=== PATIENT | male | born 1950 | race Caucasian/White ===

== ENCOUNTER 2024-05-28 09:33 | Observation (INO) ==
[2024-05-28 09:46] VITALS: BMI 26.4
--- NOTE | 2024-05-28 09:58 | DR.DIZZY ---
HPI Time seen Time Seen by Provider: 05/28/24 09:43 PCP Primary Care Physician: Isauro Rhodes Chief Complaint Doctor Comments: 73-year-old male brought in for evaluation. Patient was scheduled for a cardiac tilt test, blood pressure was found to be low on arrival there. Patient sent over to the ER for further evaluation. Patient has fallen twice since yesterday. Hurt R great toe. Denies headache, neck pain, fever, chills, URI symptoms, bowel or bladder issues. Denies any significant pain. Blood pressure better while patient laying on the stretcher. Chief Complaint:: Pt was at this facility for a tilt test and upon arrival while sitting pts bp was in the 90's systolic and when pt stood up his systolic bp dropped to the 70's systolic. Upon arrival to the ER, pt placed on athletic monitor and bp monitor and o2 sensor. Pt denies any pain at this time. COVID-19 Coronavirus risk:travel/contact w/high risk person: No Has patient experienced Coronavirus symptoms: No Nurses Notes Reviewed Nurses Notes Review: Yes Source History Provided: Patient and Family Member Mode of Arrival Mode of Arrival: Wheelchair Timing Onset of Chief Complaint: 05/28/24 Context Stroke Symptoms: None PMH PMH Past Medical History: Yes Past Medical History: Coronary Artery Disease, Diabetes, Dyslipidemia and Hypertension Past Medical History Comment: AFIB Past Surgical History: Yes Surgical History: Appendectomy, Cholecystectomy and Other Past Surgical History Comment: bilateral cataracts with removal Family History History of Family Medical Conditions: Yes Family Medical History: Hypertension Social History Does patient currently use any type of tobacco product: No Alcohol Use: None Do you use any recreational Drugs:: No Lives With: Alone Lives Where: Home Travel Risk Coronavirus risk:travel/contact w/high risk person: No Has patient experienced Coronavirus symptoms: No Infectious screening Have you traveled outside the country in the last 6 months?: No Isolation: Standard ROS Review of Systems Constitutional: No Symptoms Reported Eyes: No Symptoms Reported ENTM: No Symptoms Reported Respiratoy: No Symptoms Reported Cardiovascular: No Symptoms Reported Gastrointestinal/Abdominal: No Symptoms Reported Genitourinary: No Symptoms Reported Neurological: No Symptoms Reported Musculoskeletal: See HPI Integumentary: No Symptoms Reported Hematologic/Lymphatic: No Symptoms Reported All Other Systems: Reviewed and Negative PE Vital Signs Vitals: Vital Signs Temperature 98.5 F Pulse Rate 61 Pulse Rate 66 Pulse Rate 72 Pulse Rate 73 Pulse Rate 68 Pulse Rate 62 Pulse Rate 62 Pulse Rate 63 Pulse Rate 63 Pulse Rate 61 Pulse Rate 57 Pulse Rate 63 Pulse Rate 54 Pulse Rate 58 Pulse Rate 121 Pulse Rate 54 Pulse Rate 55 Pulse Rate 87 Pulse Rate 54 Pulse Rate 54 Pulse Rate 58 Pulse Rate 52 Pulse Rate 53 Pulse Rate 54 Respiratory Rate 14 Respiratory Rate 16 Respiratory Rate 12 Respiratory Rate 15 Respiratory Rate 20 Respiratory Rate 17 Respiratory Rate 14 Respiratory Rate 18 Respiratory Rate 18 Respiratory Rate 17 Respiratory Rate 14 Respiratory Rate 14 Respiratory Rate 15 Respiratory Rate 41 Respiratory Rate 17 Respiratory Rate 30 Respiratory Rate 16 Respiratory Rate 12 Respiratory Rate 19 Respiratory Rate 18 Respiratory Rate 16 Respiratory Rate 16 Respiratory Rate 17 Blood Pressure 154/72 Blood Pressure 102/57 Blood Pressure 73/45 Blood Pressure 93/53 Blood Pressure 140/71 Blood Pressure 126/64 Blood Pressure 132/65 O2 Sat by Pulse Oximetry 100 O2 Sat by Pulse Oximetry 100 O2 Sat by Pulse Oximetry 99 O2 Sat by Pulse Oximetry 100 O2 Sat by Pulse Oximetry 100 O2 Sat by Pulse Oximetry 90 O2 Sat by Pulse Oximetry 97 O2 Sat by Pulse Oximetry 87 O2 Sat by Pulse Oximetry 100 O2 Sat by Pulse Oximetry 100 O2 Sat by Pulse Oximetry 100 O2 Sat by Pulse Oximetry 91 O2 Sat by Pulse Oximetry 100 O2 Sat by Pulse Oximetry 100 O2 Sat by Pulse Oximetry 100 O2 Sat by Pulse Oximetry 100 O2 Sat by Pulse Oximetry 100 O2 Sat by Pulse Oximetry 100 O2 Sat by Pulse Oximetry 100 O2 Sat by Pulse Oximetry 100 O2 Sat by Pulse Oximetry 100 General General Appearance: Alert and In No Apparent Distress Head Head Exam: Normal Inspection, Atraumatic and Normocephalic Eyes Eye exam: PERRL and EOMI ENT ENT Exam: Normal Oropharynx and Mucous Membranes Moist Neck Neck Exam: Normal Inspection and Full ROM; negative Tenderness Respiratory Respiratory Exam: Normal Lung Sounds Bilat; negative Accessory Muscle Use or Respiratory Distress Cardiovascular Cardiovascular Exam: Regular Rate, Normal Rhythm and Normal Heart Sounds Abdominal Exam Abdominal Exam: Normal Bowel Sounds and Soft; negative Tenderness Extremeties Extremities Exam: Full ROM; negative Edema Neurologic Neurological Exam: Alert, Oriented X3 and CN II-XII Intact; negative Motor Sensory Deficit Skin Skin Exam: Warm and Dry Other Exam Other Exam: R 1st toe - + abrasion dorsal aspect, dried blood, partial subungal hematoma. COURSE Treatment Treatment: 73-year-old male sent over with low blood pressure, after presenting for tilt test.. BP better with laying down. Patient has fallen twice in the past 24 hours. Workup initiated. Patient given IV fluids..1027 - + small dorsal chip fracture of dorsal distal phalanx. 1324 -labs overall acceptable has a slight elevation of lactic acid, 2.4. Patient with no clinical evidence for sepsis or acute infection. CT abdomen pelvis without acute abnormalities, shows improvement of the previous adjacent liver abscess, improved over last study of March.. Pt stable here. Will d/c to home. Will brianna tape great toe. Recommend holding his lisinopril x 2 days, then restart at lower dose, 5 mg qday. 1353 - change of plans. Check patient's blood pressure with sitting and standing. Drops dramatically with symptoms of lightheaded dizziness. Feels better, looks great while supine. Recommend admission for orthostatic hypotension. Will d ecrease his blood pressure medicines and observe his response. Patient presented to the on-call physician, Dr. Frausto, accepts the admission. ROR Labs Reviewed Laboratory Results Reviewed?: Yes 05/28/24 09:48 05/28/24 09:55 Laboratory: WBC 14.4 X10^3/uL (3.6-10.0) H 05/28/24 09:48 RBC 5.03 X10^6/uL (4.7-6.0) 05/28/24 09:48 Hgb 13.9 g/dL (13.5-18.0) 05/28/24 09:48 Hct 42.2 % (42.0-54.0) 05/28/24 09:48 MCV 84.0 fL (80.0-100.0) 05/28/24 09:48 MCH 27.6 pg (27.0-34.0) 05/28/24 09:48 MCHC 32.9 g/dL (33.0-35.0) L 05/28/24 09:48 RDW 18.0 % (11.6-16.5) H 05/28/24 09:48 Plt Count 217 X10^3/uL (150.0-450.0) 05/28/24 09:48 MPV 8.2 fL (7.4-11.0) 05/28/24 09:48 Neut % (Auto) 78.9 % (42.0-75.0) H 05/28/24 09:48 Lymph % (Auto) 12.3 % (21.0-51.0) L 05/28/24 09:48 [place] % (Auto) 7.9 % (0.0-13.0) 05/28/24 09:48 Eos % (Auto) 0.4 % (0.9-2.9) L 05/28/24 09:48 Baso % (Auto) 0.5 % (0.2-1.0) 05/28/24 09:48 Neut # (Auto) 11.4 x10^3/uL (2.2-4.8) H 05/28/24 09:48 Lymph # (Auto) 1.8 X10^3/uL (1.3-2.9) 05/28/24 09:48 [place] # (Auto) 1.1 x10^3/uL (0.3-0.8) H 05/28/24 09:48 Eos # (Auto) 0.1 x10^3/uL (0.0-0.2) 05/28/24 09:48 Baso # (Auto) 0.1 X10^3/uL (0.0-0.1) 05/28/24 09:48 Absolute Nucleated RBC 0.1 /100WBC 05/28/24 09:48 Sodium 135 mmol/L (136-145) L 05/28/24 09:55 Corrected Sodium 136 mmol/L (136-145) 05/28/24 09:55 Potassium 3.7 mmol/L (3.5-5.1) 05/28/24 09:55 Chloride 98 mmol/L (98-107) 05/28/24 09:55 Carbon Dioxide 27.1 mmol/L (21-32) 05/28/24 09:55 BUN 14 mg/dL (7-18) 05/28/24 09:55 Creatinine 1.29 mg/dL (0.70-1.30) 05/28/24 09:55 Est GFR (MDRD) Af Amer > 60 (>60) 05/28/24 09:55 Est GFR (MDRD) Non-Af 58 (>60) L 05/28/24 09:55 Glucose 162 mg/dL (65-99) H 05/28/24 09:55 Lactic Acid 2.4 mmol/L (0.4-2.0) H 05/28/24 09:55 Calcium 9.2 mg/dL (8.5-10.1) 05/28/24 09:55 Corrected Calcium TNP 05/28/24 09:55 Total Bilirubin 0.90 mg/dL (0.2-1.0) 05/28/24 09:55 AST 19 Units/L (15-37) 05/28/24 09:55 ALT 22 Units/L (12-78) 05/28/24 09:55 Alkaline Phosphatase 70 Units/L (46-116) 05/28/24 09:55 Troponin I High Sens 8.6 ng/L (4.0-60.0) 05/28/24 09:55 Total Protein 7.2 g/dL (6.4-8.2) 05/28/24 09:55 Albumin 3.5 g/dL (3.4-5.0) 05/28/24 09:55 Globulin 3.7 g/dL (2.5-4.5) 05/28/24 09:55 Albumin/Globulin Ratio 0.9 Ratio (1.1-2.1) L 05/28/24 09:55 Lipase 25 Units/L (16-77) 05/28/24 09:55 XRAY XRAY Interpreted by: Radiologist X-ray Results: EXAM: CT abdomen pelvis with contrast HISTORY: Hypotension, passing out, history of liver abscess TECHNIQUE: Axial postcontrast images with coronal and sagittal reformats. Dose reduction procedures were used with mA/kv adjusted for body size. COMPARISON: CTA abdomen pelvis 04/21/2024 FINDINGS: Lung bases are clear. Abundant coronary artery calcifications are identified. The liver is normal in size and configuration without focal space-occupying disease. However, adjacent to the posteroinferior margin of the inferior aspect of the right lobe of the liver there is a 2.3 by 2 cm fluid collection with some surrounding thickening of the tissue planes. This is slightly smaller than that noted on the prior examination 04/21/2024 and may represent residual of the patient's prior known abscess. This is best visualized on axial series 3, image 35 and coronal series 5, image 44 spleen, adrenal glands, and pancreas are within normal limits. Patient appears to be status post cholecystectomy. Kidneys are unobstructed and without stones or masses. Bilateral multiple renal cysts are present. No ureteral calculi are identified. Patient appears to be status post appendectomy. Calcific atherosclerotic changes present in the nondi lated abdominal aorta. 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 No intraperitoneal or retroperitoneal lymphadenopathy of significance is identified. There are no findings suggestive of enteritis, colitis, or diverticulitis. No pelvic masses, pelvic fluid, or pelvic lymphadenopathy is identified. No bladder abnormality is identified. Prostate gland is enlarged. There is marked symmetrical lobular enlargement of the seminal vesicles slightly more prominent than on the prior examination. There is no surrounding inflammatory change however seminal vesiculitis is not entirely excluded. Urological consultation may be indicated. No lytic or blastic skeletal lesions of significance identified. IMPRESSION: 2.3 x 2 cm fluid collection adjacent to the lateral margin of the tip of the right lobe of the liver possibly residual abscess from the patient's known prior perihepatic abscess. It has decreased in size since the prior examination 04/21/2024 Marked calcific atherosclerotic change in the proximal right superior mesenteric artery with an approximate 50% stenosis near the origin Enlarged prostate gland Enlarged lobular seminal vesicles bilaterally increasing in size when compared with the prior examination. No surrounding inflammatory changes identified however bilateral seminal vesiculitis is still possible. Urologic evaluation may be indicated. THIS IS AN ELECTRONICALLY VERIFIED FINAL REPORT 05/28/2024 1:09 PM - Electronically signed by Randy Spangler MD EKG Rate: 54 [place]: Normal Rhythm: SB Block: 1 ST: Nonsp Opioid Opioid Risk Tool Age (Geoff box if 16-45): No Total: 0 Total Score Risk Category: Low Risk Copyright: Satya BUCK predicting aberrant behaviors Discharge Plan Diagnosis Discharge Problem: Orthostatic hypotension, Fracture of toe of right foot Discharge Plan Patient Disposition: ADMITTED INPATIENT Condition: Stable Prescriptions: New lisinopril 5 mg tablet 5 mg PO QDAY 20 Days Qty: 20 0RF No Action citalopram 40 mg tablet 40 mg PO QDAY amiodarone 200 mg tablet 100 mg PO QDAY midodrine 5 mg tablet 5 mg PO BID chlorthalidone 25 mg tablet 12.5 mg PO QAM glimepiride 2 mg tablet 2 mg PO QDAY potassium chloride 20 mEq tablet,ER particles/crystals 20 meq PO BID simvastatin 20 mg tablet 20 mg PO QPM lisinopril 10 mg Tablet 10 mg PO DAILY cholestyramine-aspartame [Cholestyramine Light] 4 gram powder in packet 1 ea PO TID Eliquis 5 mg tablet 5 mg PO BID Health Concerns: Post Hospitalization: new medications and changes needed to prevent readmission or further decline. Pt educated and given instructions on all concerns. Orders to Discharge Patient Discharge Orders: Transfer (Routine); Ordered 05/28/24 Ordered By: Aguilar Britton Follow ups/Referrals Follow ups/Referrals: [facility],None [Primary Care Provider] - 3 days Instructions Instructions: Toe Fracture, [id number], Orthostatic Hypotension
[2024-05-28] MEDS: NS 500 ML IV 500 ML IV ONE (10:10)
--- NOTE | 2024-05-28 10:12 | EKG ---
Test Reason : low BP Blood Pressure : */* mmHG Vent. Rate : 54 BPM Atrial Rate : * BPM P-R Int : * ms QRS Dur : 94 ms QT Int : 488 ms P-R-T Axes : * 50 62 degrees QTc Int : 462 ms Poor data quality, interpretation may be adversely affected Sinus bradycardia ,first degree AV block Septal infarct , age undetermined Abnormal ECG No previous ECGs available Confirmed by Zeeshan Abreu MD ([id number]) on 05/29/2024 7:35:10 AM Referred By: Confirmed By: Zeeshan Abreu MD
[2024-05-28 10:20] LABS: BASOPHILS # (AUTO) 0.1 X10^3/uL (0.0-0.1); BASOPHILS % (AUTO) 0.5 % (0.2-1.0); EOSINOPHILS # (AUTO) 0.1 x10^3/uL (0.0-0.2); EOSINOPHILS % (AUTO) 0.4 % (0.9-2.9); HEMATOCRIT 42.2 % (42.0-54.0); HEMOGLOBIN 13.9 g/dL (13.5-18.0); LYMPHOCYTES # (AUTO) 1.8 X10^3/uL (1.3-2.9); LYMPHOCYTES % (AUTO) 12.3 % (21.0-51.0); MEAN CORPUSCULAR HEMOGLOBIN 27.6 pg (27.0-34.0); MEAN CORPUSCULAR HGB CONC 32.9 g/dL (33.0-35.0); MEAN PLATELET VOLUME 8.2 fL (7.4-11.0); MONOCYTES # (AUTO) 1.1 x10^3/uL (0.3-0.8); MONOCYTES % (AUTO) 7.9 % (0.0-13.0); NEUTROPHILS # (AUTO) 11.4 x10^3/uL (2.2-4.8); NEUTROPHILS % (AUTO) 78.9 % (42.0-75.0); PLATELET COUNT 217 X10^3/uL (150.0-450.0); RED BLOOD COUNT 5.03 X10^6/uL (4.7-6.0); WHITE BLOOD COUNT 14.4 X10^3/uL (3.6-10.0)
[2024-05-28 10:33] LABS: ALANINE AMINOTRANSFERASE 22 Units/L (12-78); ALBUMIN 3.5 g/dL (3.4-5.0); ALKALINE PHOSPHATASE 70 Units/L (46-116); ASPARTATE AMINO TRANSFERASE 19 Units/L (15-37); BLOOD UREA NITROGEN 14 mg/dL (7-18); CALCIUM 9.2 mg/dL (8.5-10.1); CARBON DIOXIDE 27.1 mmol/L (21-32); CHLORIDE 98 mmol/L (98-107); COR NA(FOR HYPERGLY) 136 mmol/L (136-145); CREATININE 1.29 mg/dL (0.70-1.30); GLUCOSE 162 mg/dL (65-99); LIPASE 25 Units/L (16-77); POTASSIUM 3.7 mmol/L (3.5-5.1); SODIUM 135 mmol/L (136-145); TOTAL PROTEIN 7.2 g/dL (6.4-8.2); eGFR NON BLACK RACES 58 (>60)
[2024-05-28] MEDS ORDERED: OMNIPAQUE 350 mg/mL 100 mL BTL 100 ML ONE (12:01)
--- NOTE | 2024-05-28 13:12 | CT ---
EXAM:CT abdomen pelvis with contrastHISTORY:Hypotension, passing out, history of liver abscessTECHNIQUE:Axial postcontrast images with coronal and sagittal reformats. Dose reduction procedures were used with mA/kv adjusted for body size.COMPARISON:CTA abdomen pelvis 04/21/2024FINDINGS:Lung bases are clear. Abundant coronary artery calcifications are identified. The liver is normal in size and configuration without focal space-occupying disease. However, adjacent to the posteroinferior margin of the inferior aspect of the right lobe of the liver there is a 2.3 by 2 cm fluid collection with some surrounding thickening of the tissue planes. This is slightly smaller than that noted on the prior examination 04/21/2024 and may represent residual of the patient's prior known abscess. This is best visualized on axial series 3, image 35 and coronal series 5, image 44 spleen, adrenal glands, and pancreas are within normal limits. Patient appears to be status post cholecystectomy. Kidneys are unobstructed and without stones or masses. Bilateral multiple renal cysts are present. No ureteral calculi are identified. Patient appears to be status post appendectomy. Calcific atherosclerotic changes present in the nondilated abdominal aorta. 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 No intraperitoneal or retroperitoneal lymphadenopathy of significance is identified. There are no findings suggestive of enteritis, colitis, or diverticulitis. No pelvic masses, pelvic fluid, or pelvic lymphadenopathy is identified. No bladder abnormality is identified. Prostate gland is enlarged. There is marked symmetrical lobular enlargement of the seminal vesicles slightly more prominent than on the prior examination. There is no surrounding inflammatory change however seminal vesiculitis is not entirely excluded. Urological consultation may be indicated. No lytic or blastic skeletal lesions of significance identified.IMPRESSION:2.3 x 2 cm fluid collection adjacent to the lateral margin of the tip of the right lobe of the liver possibly residual abscess from the patient's known prior perihepatic abscess. It has decreased in size since the prior examination 04/21/2024Marked calcific atherosclerotic change in the proximal right superior mesenteric artery with an approximate 50% stenosis near the originEnlarged prostate glandEnlarged lobular seminal vesicles bilaterally increasing in size when compared with the prior examination. No surrounding inflammatory changes identified however bilateral seminal vesiculitis is still possible. Urologic evaluation may be indicated.THIS IS AN ELECTRONICALLY VERIFIED FINAL REPORT05/28/2024 1:09 PM - Electronically signed by Randy Spangler MD
[2024-05-28] MEDS ORDERED: CONSULT PHARMACY - POTASSIUM & MAGNESIUM XX SCH (15:00)
--- NOTE | 2024-05-28 16:54 | RAD ---
EXAM:CHEST, 1 VIEWHISTORY:low BP; hx- CAD, DIABETIES, HTN, A-FIB SX- APPENDECTOMY, CHOLECYSTECTOMYCOMPARISON:None.TECHNIQUE: .br.br.br.br mediastinal contours are normal. Lungs are clear as are the pleural spaces. No free air or pneumothorax. No acute bony abnormality. There is locally advanced glenohumeral osteoarthrosis of the right shoulder with multiple calcified loose bodies in the inferior joint recess.Please note that the left costophrenic sulcus is excluded from the field of view.IMPRESSION:No acute radiographic abnormalities of the chest.THIS IS AN ELECTRONICALLY VERIFIED FINAL REPORT05/28/2024 4:51 PM - Electronically signed by Guillermo Friend MD
[2024-05-28] MEDS: D5 NS 1,000 ML IV 1,000 ML IV SCH (18:27)
[2024-05-28 20:11] LABS: BILIRUBIN,URINE NEGATIVE (NEGATIVE); BLOOD/HEMOGLOBIN,URINE 1+ (NEGATIVE); GLUCOSE, URINE 3+ (NEGATIVE); KETONES,URINE NEGATIVE (NEGATIVE); LEUKOCYTE ESTERASE ,URINE NEGATIVE (NEGATIVE); NITRITES,URINE NEGATIVE (NEGATIVE); PROTEIN,URINE 2+ (NEGATIVE); UROBILINOGEN,URINE NORMAL (NORMAL)
[2024-05-28 20:20] LABS: APPEARANCE,URINE CLEAR (CLEAR); BACTERIA,URINE TRACE /HPF (NEGATIVE); COLOR,URINE YELLOW (YELLOW); RBC,URINE 0-2 /HPF (0-3); SQUAMOUS EPITHELIAL CELL,UR RARE /HPF (NEGATIVE)
[2024-05-28] MEDS: QUESTRAN POWDER FOR ORAL SUSP PO SCH (22:15)
[2024-05-28] MEDS: PROAMATINE PO SCH (22:16)
[2024-05-28] MEDS: ZOCOR TAB 20 MG PO SCH (22:16)
[2024-05-28] MEDS: K-DUR TAB 20 MEQ PO SCH (22:16)
[2024-05-28] MEDS: ELIQUIS PO SCH (22:16)
[2024-05-29 06:01] LABS: BASOPHILS # (AUTO) 0.1 X10^3/uL (0.0-0.1); BASOPHILS % (AUTO) 0.8 % (0.2-1.0); EOSINOPHILS # (AUTO) 0.1 x10^3/uL (0.0-0.2); EOSINOPHILS % (AUTO) 1.7 % (0.9-2.9); HEMATOCRIT 37.9 % (42.0-54.0); HEMOGLOBIN 12.8 g/dL (13.5-18.0); LYMPHOCYTES # (AUTO) 1.9 X10^3/uL (1.3-2.9); LYMPHOCYTES % (AUTO) 21.8 % (21.0-51.0); MEAN CORPUSCULAR HEMOGLOBIN 28.2 pg (27.0-34.0); MEAN CORPUSCULAR HGB CONC 33.7 g/dL (33.0-35.0); MEAN CORPUSCULAR VOLUME 83.8 fL (80.0-100.0); MEAN PLATELET VOLUME 7.9 fL (7.4-11.0); MONOCYTES # (AUTO) 0.8 x10^3/uL (0.3-0.8); MONOCYTES % (AUTO) 9.5 % (0.0-13.0); NEUTROPHILS # (AUTO) 5.8 x10^3/uL (2.2-4.8); NEUTROPHILS % (AUTO) 66.2 % (42.0-75.0); PLATELET COUNT 196 X10^3/uL (150.0-450.0); RED BLOOD COUNT 4.52 X10^6/uL (4.7-6.0); RED CELL DISTRIBUTION WIDTH 18.3 % (11.6-16.5); WHITE BLOOD COUNT 8.7 X10^3/uL (3.6-10.0)
[2024-05-29 06:10] LABS: ALANINE AMINOTRANSFERASE 17 Units/L (12-78); ALBUMIN 2.9 g/dL (3.4-5.0); ALKALINE PHOSPHATASE 63 Units/L (46-116); ASPARTATE AMINO TRANSFERASE 12 Units/L (15-37); BLOOD UREA NITROGEN 12 mg/dL (7-18); CALCIUM 8.2 mg/dL (8.5-10.1); CARBON DIOXIDE 30.3 mmol/L (21-32); CHLORIDE 98 mmol/L (98-107); COR CA(FOR HYPOALB) 9.1 mg/dL (8.5-10.1); COR NA(FOR HYPERGLY) 138 mmol/L (136-145); CREATININE 1.01 mg/dL (0.70-1.30); GLUCOSE 193 mg/dL (65-99); MAGNESIUM 1.5 mg/dL (2.0-2.9); POTASSIUM 3.3 mmol/L (3.5-5.1); SODIUM 136 mmol/L (136-145); TOTAL PROTEIN 6.4 g/dL (6.4-8.2); eGFR NON BLACK RACES > 60 (>60)
--- NOTE | 2024-05-29 06:22 | RAD ---
EXAM:Right foot three viewsHISTORY:Fall, injury right great toeCOMPARISON:NoneFINDINGS:No evidence for fracture, lytic, or blastic lesion. No erosive arthritis or soft tissue abnormality is identified. Degenerative joint disease is present in the 1st interphalangeal joint. Carpal bones are intact and normally aligned. Lisfranc joint is intact. Great toe is intact.IMPRESSION:No fracture identifiedDegenerative joint disease 1st interphalangeal jointTHIS IS AN ELECTRONICALLY VERIFIED FINAL REPORT05/29/2024 6:19 AM - Electronically signed by Randy Spangler MD
[2024-05-29] MEDS: AMARYL TAB 4 MG PO SCH (06:30)
[2024-05-29] MEDS ORDERED: CONSULT PHARMACY - POTASSIUM & MAGNESIUM XX SCH (07:00)
[2024-05-29] MEDS: MAG-OX TAB PO SCH (09:13)
[2024-05-29] MEDS: CELEXA PO SCH (09:14)
[2024-05-29] MEDS: CORDARONE TAB 200 MG PO SCH (09:14)
[2024-05-29] MEDS: K-DUR TAB 20 MEQ PO SCH (09:17)
[2024-05-29] MEDS: NovoLIN R (or HumuLIN R) SUBCUT PRN (12:00)
[2024-05-29 14:00] VITALS: BP 152/68; PULSE 55; RESP 18; TEMP 96.7; O2SAT 99
[2024-05-29] MEDS ORDERED: SNACK - Diabetic Appropriate PO SCH (20:00)
--- NOTE | 2024-05-30 08:50 | DR.SSS ---
SHORT STAY SUMMARY Admission Date Date of Admission: 05/28/24 Discharge Date Discharge Date: 05/29/24 Admission Diagnoses Admission Diagnoses: Orthostatic hypotension Discharge Diagnoses Discharge Diagnoses: Orthostatic hypotension Chief Complaint Chief Complaint: Dizziness History of Present Illness History of Present Illness: Patient sent from cardiology office to the ER due to severe hypotension on standing. Patient has been having issues with dizziness, fatigue, and low blood pressure on standing for the last 9 months. He reports it started after he had his gallbladder out around [place] of 2022. He has been in the hospital 3 times prior to this for the same issue. He has been seeing cardiology and undergoing workup. He was scheduled to do a tilt table test today but they were unable to do it because of his symptoms. ER workup benign. They were originally going to discharge him but found him to be, once again, severely hypotensive on standing. Hence we were called to admit. Patient has done well overnight. Reports he is feeling much better this morning. He has not gotten out of bed with nursing or therapy yet. Appetite has been good. He denies any other complaints. Currently wearing his nasal mask for CPAP use. ROS: 12 point ROS negative except as noted in HPI. Vitals reviewed. Labs, reviewed. RAD: Reviewed. PE: Well-developed, well-nourished male in no acute distress. He is wearing a nasal mask. Hearing intact conversation. EOMI. Heart regular rate and rhythm. Lungs are clear with strong speech. Mood and affect appropriate. Skin appropriate color and turgor. Moves all extremities equally well. Past Medical History Past Medical History: Coronary Artery Disease, Diabetes, Dyslipidemia and Hypertension Past Surgical History Surgical History: Appendectomy and Cholecystectomy Allergies Allergies Allergy/AdvReac Type Severity Reaction Status Date / Time No Known Drug Allergies Allergy Verified 04/05/21 07:50 Medications Home Medications: No Known Drug Allergies Allergy (Verified 04/05/21 07:50) CONTINUE taking the following medications amiodarone 200 mg tablet 100 mg PO QDAY 05/28/24 [History] apixaban 5 mg tablet (Eliquis) 5 mg PO BID 05/28/24 [History] chlorthalidone 25 mg tablet 12.5 mg PO QAM 05/28/24 [History] cholestyramine-aspartame 4 gram oral powder for susp in a packet (Cholestyramine Light) 1 ea PO TID 05/28/24 [History] citalopram 40 mg tablet 40 mg PO QDAY 05/28/24 [History] glimepiride 2 mg tablet 2 mg PO QDAY 05/28/24 [History] midodrine 5 mg tablet 5 mg PO BID 05/28/24 [History] potassium chloride 20 mEq tablet,extended release(part/cryst) 20 meq PO BID 05/28/24 [History] simvastatin 20 mg tablet 20 mg PO QPM 05/28/24 [History] New Prescriptions lisinopril 5 mg tablet 5 mg PO QDAY 20 days #20 tabs 05/28/24 [Rx] Family History Family Medical History: Hypertension Social History Does patient currently use any type of tobacco product: No Type of Tobacco Use: None Does any household member use tobacco: No Alcohol Use: None Drug Use: None Physical Exam Vital Signs: Last Vital Signs Temp 97.8 F 05/29/24 04:00 Pulse 52 L 05/29/24 04:00 Resp 18 05/29/24 04:00 BP 147/65 05/29/24 04:00 Pulse Ox 98 05/29/24 04:00 O2 Del Method Bi-pap 05/29/24 04:00 Labs Labs: Laboratory Last Values WBC 8.7 X10^3/uL (3.6-10.0) 05/29/24 05:44 RBC 4.52 X10^6/uL (4.7-6.0) L 05/29/24 05:44 Hgb 12.8 g/dL (13.5-18.0) L 05/29/24 05:44 Hct 37.9 % (42.0-54.0) L 05/29/24 05:44 MCV 83.8 fL (80.0-100.0) 05/29/24 05:44 MCH 28.2 pg (27.0-34.0) 05/29/24 05:44 MCHC 33.7 g/dL (33.0-35.0) 05/29/24 05:44 RDW 18.3 % (11.6-16.5) H 05/29/24 05:44 Plt Count 196 X10^3/uL (150.0-450.0) 05/29/24 05:44 MPV 7.9 fL (7.4-11.0) 05/29/24 05:44 Neut % (Auto) 66.2 % (42.0-75.0) 05/29/24 05:44 Lymph % (Auto) 21.8 % (21.0-51.0) 05/29/24 05:44 [place] % (Auto) 9.5 % (0.0-13.0) 05/29/24 05:44 Eos % (Auto) 1.7 % (0.9-2.9) 05/29/24 05:44 Baso % (Auto) 0.8 % (0.2-1.0) 05/29/24 05:44 Neut # (Auto) 5.8 x10^3/uL (2.2-4.8) H 05/29/24 05:44 Lymph # (Auto) 1.9 X10^3/uL (1.3-2.9) 05/29/24 05:44 [place] # (Auto) 0.8 x10^3/uL (0.3-0.8) 05/29/24 05:44 Eos # (Auto) 0.1 x10^3/uL (0.0-0.2) 05/29/24 05:44 Baso # (Auto) 0.1 X10^3/uL (0.0-0.1) 05/29/24 05:44 Absolute Nucleated RBC 0.0 /100WBC 05/29/24 05:44 Sodium 136 mmol/L (136-145) 05/29/24 05:44 Corrected Sodium 138 mmol/L (136-145) 05/29/24 05:44 Potassium 3.3 mmol/L (3.5-5.1) L 05/29/24 05:44 Chloride 98 mmol/L (98-107) 05/29/24 05:44 Carbon Dioxide 30.3 mmol/L (21-32) 05/29/24 05:44 BUN 12 mg/dL (7-18) 05/29/24 05:44 Creatinine 1.01 mg/dL (0.70-1.30) 05/29/24 05:44 Est GFR (MDRD) Af Amer > 60 (>60) 05/29/24 05:44 Est GFR (MDRD) Non-Af > 60 (>60) 05/29/24 05:44 Glucose 193 mg/dL (65-99) H 05/29/24 05:44 POC Glucose (mg/dL) 169 mg/dL (65-99) H 05/29/24 07:03 Lactic Acid 1.8 mmol/L (0.4-2.0) 05/28/24 14:25 Calcium 8.2 mg/dL (8.5-10.1) L 05/29/24 05:44 Corrected Calcium 9.1 mg/dL (8.5-10.1) 05/29/24 05:44 Magnesium 1.5 mg/dL (2.0-2.9) L 05/29/24 05:44 Total Bilirubin 0.80 mg/dL (0.2-1.0) 05/29/24 05:44 AST 12 Units/L (15-37) L 05/29/24 05:44 ALT 17 Units/L (12-78) 05/29/24 05:44 Alkaline Phosphatase 63 Units/L (46-116) 05/29/24 05:44 Troponin I High Sens 8.6 ng/L (4.0-60.0) 05/28/24 09:55 Total Protein 6.4 g/dL (6.4-8.2) 05/29/24 05:44 Albumin 2.9 g/dL (3.4-5.0) L 05/29/24 05:44 Globulin 3.5 g/dL (2.5-4.5) 05/29/24 05:44 Albumin/Globulin Ratio 0.8 Ratio (1.1-2.1) L 05/29/24 05:44 Lipase 25 Units/L (16-77) 05/28/24 09:55 Specimen Type Clean catch urine 05/28/24 19:47 Urine Color Yellow (YELLOW) 05/28/24 19:47 Urine Appearance Clear (CLEAR) 05/28/24 19:47 Urine pH 6.0 (5.0 - 8.0) 05/28/24 19:47 Ur Specific Cable 1.010 (1.000-1.030) 05/28/24 19:47 Urine Protein 2+ (NEGATIVE) 05/28/24 19:47 Urine Glucose (UA) 3+ (NEGATIVE) 05/28/24 19:47 Urine Ketones Negative (NEGATIVE) 05/28/24 19:47 Urine Blood 1+ (NEGATIVE) 05/28/24 19:47 Urine Nitrite Negative (NEGATIVE) 05/28/24 19:47 Urine Bilirubin Negative (NEGATIVE) 05/28/24 19:47 Urine Urobilinogen Normal (NORMAL) 05/28/24 19:47 Ur Leukocyte Esterase Negative (NEGATIVE) 05/28/24 19:47 Urine RBC 0-2 /HPF (0-3) 05/28/24 19:47 Urine WBC 0-2 /HPF (0-5) 05/28/24 19:47 Ur Squamous Epith Cells Rare /HPF (NEGATIVE) 05/28/24 19:47 Amorphous Sediment Trace /HPF (NEGATIVE) 05/28/24 19:47 Urine Bacteria Trace /HPF (NEGATIVE) 05/28/24 19:47 Ur Culture Indicated? No/not indicated 05/28/24 19:47 Assessment/Plan (1) Orthostatic hypotension: (2) Observed sleep apnea: (3) Paroxysmal atrial fibrillation: (4) Mixed hyperlipidemia: Hospital Course Hospital Course: Patient did well overnight on fluids and his home medications. He did get up with nursing after orthostatic vitals were obtained. He had no more than a 10 point shift. He did not feel dizzy on standing or walking. He did have cardiology follow-up for this afternoon already scheduled. Patient discharged home for follow-up with cardiology in improved, stable condition. Does need to complete workup for his continuing orthostatic hypotension. Discharge Medications Discharge Medications: Home Medication List amiodarone 200 mg tablet 100 mg PO QDAY 05/28/24 [History] apixaban 5 mg tablet (Eliquis) 5 mg PO BID 05/28/24 [History] chlorthalidone 25 mg tablet 12.5 mg PO QAM 05/28/24 [History] cholestyramine-aspartame 4 gram oral powder for susp in a packet (Cholestyramine Light) 1 ea PO TID 05/28/24 [History] citalopram 40 mg tablet 40 mg PO QDAY 05/28/24 [History] glimepiride 2 mg tablet 2 mg PO QDAY 05/28/24 [History] lisinopril 5 mg tablet 5 mg PO QDAY 20 days #20 tabs 05/28/24 [Rx] midodrine 5 mg tablet 5 mg PO BID 05/28/24 [History] potassium chloride 20 mEq tablet,extended release(part/cryst) 20 meq PO BID 05/28/24 [History] simvastatin 20 mg tablet 20 mg PO QPM 05/28/24 [History] Prescriptions: lisinopril Aguilar Britton Discharge Plan Discharge Plan Patient Disposition: 01 HOME, SELF-CARE Condition: Stable Health Concerns: Post Hospitalization: new medications and changes needed to prevent readmission or further decline. Pt educated and given instructions on all concerns. Care Plan Goals: Problem: Cardiac Complications Goal: Early Recognition of cardiac complications for prompt intervention Instructions: Follow provided instructions. Follow up with primary physician as directed. Contact primary care physician or report to the closest Emergency Room if condition worsens. Plan of Treatment: Problem: Activity Intolerance Goal: Increased tolerance to activity Instructions: Follow provided instructions. Follow up with primary physician as directed. Contact primary care physician or report to the closest Emergency Room if condition worsens. Assessment: No distress noted Prescriptions: New lisinopril 5 mg tablet 5 mg PO QDAY 20 Days Qty: 20 0RF No Action doxycycline hyclate 100 mg tablet 100 mg PO BID Qty: 20 0RF citalopram 40 mg tablet 40 mg PO QDAY amiodarone 200 mg tablet 100 mg PO QDAY midodrine 5 mg tablet 5 mg PO BID chlorthalidone 25 mg tablet 12.5 mg PO QAM glimepiride 2 mg tablet 2 mg PO QDAY potassium chloride 20 mEq tablet,ER particles/crystals 20 meq PO BID simvastatin 20 mg tablet 20 mg PO QPM cholestyramine-aspartame [Cholestyramine Light] 4 gram powder in packet 1 ea PO TID Eliquis 5 mg tablet 5 mg PO BID Orders to Discharge Patient Discharge Orders: Discharge (Routine); Ordered 05/29/24 Ordered By: Andrés Frausto Follow ups/Referrals Follow ups/Referrals: DIOGO MENON [STAFF PHYSICIAN] - 1 WEEK NFD,None [Primary Care Provider] - 3 days Instructions Instructions: Toe Fracture, [id number], Orthostatic Hypotension Activity Restrictions/Additional Instructions: Keep log of blood pressure and heart rate for follow up appointment with Dr. Menon. Call Dr. Menon's office and schedule follow up appointment. Office closed at time of discharge. Stand Alone Forms: Post Hospital Follow Up Care
== END 2024-05-29 13:35 | disposition home or self-care (01) ==
LOC: ER 09:33 → MED/SURG 09:33
PROVIDERS: ADMIT Family Medicine; ATTEND Family Medicine